=== PATIENT | male | born 1980 | race Caucasian/White ===

== ENCOUNTER 2021-10-26 08:22 | Outpatient (CLI) | payer OTHER, SELFPAY ==
--- NOTE | ~2021-10-26 | US_ITS ---
EXAMINATION: US right upper quadrant EXAM DATE: 10/26/2021 09:08 INDICATION: Elevated pancreatic enzyme, Hypothyroidism. TECHNIQUE: Multiple grayscale and Doppler images of the abdomen right upper quadrant were obtained (b y a technologist who performed the scan) and subsequently reviewed. There is no prior study for reid gonzalez. FINDINGS: The pancreatic head and body are normal in appearance. The pancreatic tail is not visualized. The l iver has normal echogenicity and contour. There are no focal liver lesions identified. There is no evidence of intrahepatic biliary duct dilation. Portal venous flow was seen in the hepatopedal, nor mal direction and has normal Doppler waveform. No right-sided hydronephrosis. Common bile duct measures 2 mm, which is normal. The gallbladder wall is normal in thickness, with ex pected amount of distention. No sonographic evidence of pericholecystic fluid. There is no cholelit hiases. Technologist performing exam reports patient did not demonstrate sonographic Watters's sign. Please note that this sign is less reliable in patients who have received pain medication. IMPRESSION: 1. Unremarkable abdominal ultrasound exam. Reviewed, dictated and finalized at location B. [facility]
--- NOTE | ~2021-10-26 | US_ITS ---
EXAMINATION: US thyroid EXAM DATE: 10/26/2021 09:08 INDICATION: Elevated pancreatic enzyme, Hypothyroidism. TECHNIQUE: Multiple grayscale and Doppler images of the thyroid were obtained (by a technologist who performed the scan) and subsequently reviewed. Individual nodules and recommendations may be reporte d in accordance with TI-RADS system as designated by the 2017 ACR White Paper TI-RADS committee. The re is no prior study for comparison. FINDINGS: Right thyroid lobe measures 4.7 x 1.2 x 1.7 cm, the left measuring 4.0 x 1.3 x 1.4 cm. There is diffu sely heterogeneous thyroid echogenicity with right thyroid lobe nodule measuring 8 x 6 x 4 mm contain ing peripheral calcification, smooth margin but otherwise difficult to evaluate, category TR4 for thi s nodule. No follow-up indicated for this subcentimeter. IMPRESSION: Subcentimeter right thyroid lobe nodule; return to clinical follow-up and if additional p alpable abnormality develops a repeat ultrasound can be obtained. Reviewed, dictated and finalized at location B. [employer] [employer] IMPRESSION: Subcentimeter right thyroid lobe nodule; return to clinical follow- up and if additional palpable abnormality develops a repeat ultrasound can be o btained.
== END 2021-10-26 08:23 | disposition home or self-care (01) ==
LOC: CHSIMG 08:24
PROVIDERS: PCP Nurse Practitioner; Visit Provider Nurse Practitioner
DX: E03.9 Hypothyroidism, unspecified (principal); R74.8 Abnormal levels of other serum enzymes
CPT/HCPCS: 76536; 76705